=== PATIENT | male | born 1965 | race Caucasian/White ===

== ENCOUNTER 2022-11-02 18:06 | Emergency (ER) | payer SELFPAY ==
[~2022-11-02] VITALS: Ht 170.2 cm; Wt 56.0 kg
[2022-11-02 18:15] VITALS: BP 133/92
== END 2022-11-02 18:31 | disposition home or self-care (01) ==
LOC: ER 18:07
DX: R04.0 Epistaxis (principal); F17.200 Nicotine dependence, unspecified, uncomplicated
CPT/HCPCS: 99283

== ENCOUNTER 2023-05-12 14:43 | Emergency (ER) | payer OTHER ==
[~2023-05-12] VITALS: Ht 170.2 cm; Wt 59.3 kg
[2023-05-12] MEDS ORDERED: ketorolac trometh inj. 60 MG/2 ML VIAL IM ONE (16:00)
[2023-05-12] MEDS ORDERED: NEOM10SO7 LEFT EAR (16:02)
[2023-05-12] MEDS ORDERED: NAPR-56 PO (16:02)
[2023-05-12] MEDS ORDERED: CEFD300C3 PO (16:02)
[2023-05-12 16:13] VITALS: BP 103/88; PULSE 100; RESP 17; TEMP 99.8; O2SAT 99
--- NOTE | 2023-05-12 16:38 | NUR ---
I have reviewed and agree with all interventions, assessments performed and documented by ELECTRICAL MAINTENANCE TECHNICIAN
== END 2023-05-12 16:14 | disposition home or self-care (01) ==
LOC: ER 14:44
DX: H60.502 Unspecified acute noninfective otitis externa, left ear (principal); H66.92 Otitis media, unspecified, left ear
CPT/HCPCS: 96372; 99283; J1885

== ENCOUNTER 2023-05-13 00:42 | Emergency (ER) | payer OTHER ==
[~2023-05-13] VITALS: Ht 170.2 cm; Wt 62.7 kg
[~2023-05-13 00:42] MED LIST: CEFD300C3 PO; NAPR-56 PO; NEOM10SO7 LEFT EAR
[2023-05-13] MEDS ORDERED: HYDROcodone/acetaminophen 5mg/325mg tablet PO ONE (01:10)
[2023-05-13] MEDS ORDERED: ketorolac trometh inj. 60 MG/2 ML VIAL IM ONE (01:10)
[2023-05-13] MEDS ORDERED: acetaminophen 325mg tablet PO ONE (01:10)
[2023-05-13] MEDS ORDERED: proCHLORperazine 10mg tablet PO ONE (01:10)
[2023-05-13] MEDS ORDERED: CefTRIAXone 2gm/D5W 50ml BAG 50 ML IV ONE (03:55)
[2023-05-13] MEDS ORDERED: normal saline 1000ml 1,000 ML IV ONE (03:55)
[2023-05-13 05:15] LABS: BASOPHILS % (AUTO) 0.3 % (0-1); EOSINOPHILS % (AUTO) 0.1 % (0-6); HEMATOCRIT 37.6 % (42.0-52.0); HEMOGLOBIN 12.5 g/dl (14.0-17.9); LYMPHOCYTES # (AUTO) 1.3 X10'3 (1.1-4.8); LYMPHOCYTES % (AUTO) 9.6 % (21-51); MEAN CORPUSCULAR HEMOGLOBIN 31.2 PG (27.0-31.0); MEAN CORPUSCULAR HGB CONC 33.4 g/dL (33.0-36.5); MEAN CORPUSCULAR VOLUME 93.4 FL (78-98); MEAN PLATELET VOLUME 7.2 FL (7.4-10.4); MONOCYTES # (AUTO) 1.6 X10'3 (0-0.9); MONOCYTES % (AUTO) 11.7 % (2-12); NEUTROPHILS % (AUTO) 78.3 % (42-75); PLATELET COUNT 303 X10'3 (140-440); RED BLOOD COUNT 4.02 X10'6 (4.70-6.10); RED CELL DISTRIBUTION WIDTH 14.3 % (11.5-14.5)
[2023-05-13 05:29] LABS: ALANINE AMINOTRANSFERASE 24 U/L (12-78); ALBUMIN 2.5 G/DL (3.4-5.0); ALBUMIN/GLOBULIN RATIO 0.6 (1.1-1.5); ALKALINE PHOSPHATASE 93 IU/L (46-116); ANION GAP 6 (8-16); ASPARTATE AMINO TRANSFERASE 13 U/L (10-37); BILIRUBIN,TOTAL 0.3 MG/DL (0.1-1.0); BLOOD UREA NITROGEN 10 MG/DL (7-18); BUN/CREATININE RATIO 12.3 (10.0-20.0); CALCIUM 9.1 MG/DL (8.5-10.1); CHLORIDE 103 MMOL/L (99-107); CREATININE 0.81 MG/DL (0.60-1.10); GLUCOSE 129 MG/DL (70-104); MAGNESIUM 2.1 MG/DL (1.5-2.4); POTASSIUM 3.5 MMOL/L (3.5-5.1); SODIUM 136 MMOL/L (135-145); TOTAL CARBON DIOXIDE 26.8 MMOL/L (24-32); TOTAL PROTEIN 6.5 G/DL (6.4-8.2); eCRCL 86 ML/MIN; eGFR > 90 ML/MIN
[2023-05-13 09:52] VITALS: BP 116/70; PULSE 57; RESP 18; TEMP 98.7; O2SAT 100
== END 2023-05-13 10:28 | disposition short-term general hospital (02) ==
LOC: ER 00:43
DX: H70.92 Unspecified mastoiditis, left ear (principal); Z20.822 Contact with and (suspected) exposure to COVID-19; R50.9 Fever, unspecified; Z88.1 Allergy status to other antibiotic agents; Z79.899 Other long term (current) drug therapy
CPT/HCPCS: 36415; 70480; 80053; 83605; 83735; 84145; 85025; 87040; 87811; 93005; 96365; 96366; 96372; 99291; J0696; J1885; J7030; Q0164; 99285